=== PATIENT | male | born 1950 | race Caucasian/White ===

== ENCOUNTER → 2016-06-12 | Outpatient (CLI) | payer MEDICARE, OTHER ==
[2016-06-12 14:57] LABS: ABSOLUTE BASOPHILS # (AUTO) 0.1 10^3/uL (0.0-0.2); ABSOLUTE EOSINOPHILS # (AUTO) 0.3 10^3/uL (0.0-0.6); ABSOLUTE LYMPHOCYTES (AUTO) 1.7 10^3/uL (0.5-4.7); ABSOLUTE MONOCYTES (AUTO) 0.4 10^3/uL (0.1-1.4); ABSOLUTE NEUT (AUTO) 3.3 10^3/uL (1.7-8.2); BASOPHILS % (AUTO) 1.2 % (0-2); EOSINOPHILS % (AUTO) 4.6 % (0-6); HEMATOCRIT 37.1 % (37.9-51.0); HEMOGLOBIN 12.9 g/dL (13.5-17.0); HGB HCT DIFFERENCE 1.6; MEAN CORPUSCULAR HEMOGLOBIN 32.3 pg (27.0-33.4); MEAN CORPUSCULAR HGB CONC 34.8 g/dL (32.0-36.0); MEAN CORPUSCULAR VOLUME 93 fl (80-97); MONOCYTES % (AUTO) 7.4 % (3-13); RED CELL DISTRIBUTION WIDTH 12.1 % (11.5-14.0); SEGMENTED NEUTROPHILS % (AUTO) 56.8 % (42-78); WHITE BLOOD COUNT 5.8 10^3/uL (4.0-10.5)
[2016-06-12 14:59] LABS: APPEARANCE,URINE CLEAR; BILIRUBIN,URINE NEGATIVE (NEGATIVE); GLUCOSE, URINE NEGATIVE (NEGATIVE); KETONES,URINE NEGATIVE (NEGATIVE); LEUKOCYTE ESTERASE,URINE NEGATIVE (NEGATIVE); NITRITE,URINE NEGATIVE (NEGATIVE); PROTEIN,URINE NEGATIVE (NEGATIVE); URINE SPECIFIC GRAVITY 1.024
[2016-06-12 16:17] LABS: CARCINOEMBRYONIC ANTIGEN 2.2 ng/mL (<3.0); PROSTATE SPECIFIC ANTIGEN 1.03 ng/mL (<4.00)
--- NOTE | 2016-06-14 12:47 | HISTORY AND PHYSICAL E ---
History and Physical NAME: FELICIANO GRANDE : 1950 AGE: 65Y ADMITTED: 06/12/2016 ROOM: ADDENDUM: The patient was seen in the emergency room regarding GI bleed. The patient did have CT scan showing diverticulosis of the large intestine without perforation or abscess, with bleeding. A 65-year-old with recently diagnosed diverticulitis per the emergency department. I disagree with the diagnosis. I think he had diverticulosis only. Nevertheless, the presented at this time with GI bleed. PAST MEDICAL HISTORY: 1. Class 1 overweight. 2. Meniere's disease, hearing loss. 3. History of traumatic head injury as a child. 4. History of hematuria. 5. Basal cell carcinoma. His urologist is in [place]. MEDICATIONS: 1. Aspirin. 2. Antivert. 3. Valium. 4. Vitamin D. 5. Mucinex. 6. Claritin. 7. Flonase. 8. Marian. The patient stopped his hydrochlorothiazide, Norvasc, Lisinopril. SOCIAL HISTORY: He smoked cigarettes for 10 years, smoked pipe. PHYSICAL EXAMINATION: VITAL SIGNS: Blood pressure is 120/70. A 65-year-old who was seen in the emergency room after a diagnosis of diverticulosis, question diverticulitis. The patient presented at this time regarding colonoscopy. Appendix is not inflamed, no ascites. No evidence of mass, bowel obstruction. The patient presented at this time regarding a colonoscopy, GI bleed. CONCLUSION: Patient for colonoscopy tomorrow. DICTATING PHYSICIAN: RANJIT LUJAN M.D. 1819M 1507 Y#: [id number] ID: [id number] JOB#: [id number] ACCT: [id number] cc:RANJIT LUJAN M.D. >
== END ==
LOC: OD 14:12
PROVIDERS: ATTEND Specialist
DX: R10.9 Unspecified abdominal pain (principal); R97.0 Elevated carcinoembryonic antigen [CEA]; R97.20 Elevated prostate specific antigen [PSA]
CPT/HCPCS: 36415; 81001; 82378; 84153; 85025; 87086

== ENCOUNTER 2016-06-14 10:20 | Day surgery (SDC) | payer MEDICARE, OTHER ==
[~2016-06-14 10:20] MED LIST: EPINEPHRINE INJ 1 MG/10 ML DISP.SYRIN ONE; FLUMAZENIL INJ 0.5 MG/5 ML VIAL IV ONE; GLUCAGON,HUMAN RECOMB 1 MG INJ ONE; GLYCOPYRROLATE INJ 0.4 MG/2 ML VIAL ONE; LIDOCAINE 2% JELLY 30 ML TUBE ONE; MIDAZOLAM 2 MG/2 ML INJ ONE; NALOXONE HCL INJ/PF 0.4 MG/1 ML SDV ONE; ONDANSETRON HCL INJ/PF 4 MG/2 ML SDV ONE; PROMETHAZINE HCL INJ 25 MG/1 ML VIAL ONE
[2016-06-14] MEDS: FENTANYL CITRATE INJ/PF 100 MCG/2 ML AMPUL ONE ×3 (11:06→11:13)
[2016-06-14 12:03] LABS: ABSOLUTE BASOPHILS # (AUTO) 0.1 10^3/uL (0.0-0.2); ABSOLUTE EOSINOPHILS # (AUTO) 0.3 10^3/uL (0.0-0.6); ABSOLUTE LYMPHOCYTES (AUTO) 1.1 10^3/uL (0.5-4.7); ABSOLUTE MONOCYTES (AUTO) 0.4 10^3/uL (0.1-1.4); ABSOLUTE NEUT (AUTO) 3.7 10^3/uL (1.7-8.2); BASOPHILS % (AUTO) 1.3 % (0-2); EOSINOPHILS % (AUTO) 5.1 % (0-6); HEMATOCRIT 34.9 % (37.9-51.0); HGB HCT DIFFERENCE 1.1; LYMPHOCYTES % (AUTO) 19.7 % (13-45); MEAN CORPUSCULAR HGB CONC 34.3 g/dL (32.0-36.0); MEAN CORPUSCULAR VOLUME 93 fl (80-97); MONOCYTES % (AUTO) 7.8 % (3-13); RED BLOOD COUNT 3.74 10^6/uL (4.35-5.55); RED CELL DISTRIBUTION WIDTH 11.9 % (11.5-14.0); SEGMENTED NEUTROPHILS % (AUTO) 66.1 % (42-78); WHITE BLOOD COUNT 5.6 10^3/uL (4.0-10.5)
[2016-06-14 12:34] VITALS: BP 118/68
--- NOTE | 2016-06-14 12:46 | DISCHARGE SUMMARY E ---
Discharge Summary NAME: FELICIANO GRANDE : 1950 AGE: 65Y ADMITTED: 06/14/2016 DISCHARGED: 06/14/2016 PROCEDURE: Colonoscopy to the ascending colon. RECOMMENDATIONS: Recommend followup colonoscopy, complete, in 3-6 months. HOSPITAL COURSE: Patient's colonoscopy was done today un-prepped secondary to recent GI bleed from diverticulosis. Today's colonoscopy showed no further bleeding, large amount of formed stools all around the colon to the ascending. I did not see the cecum or the proximal ascending. HISTORY: Patient is known to me. He has diverticulosis, has recent CT scan showing diverticulosis plus/minus question diverticulitis. Today's un-prepped colon showed no bleeding, no malignancy, benign-looking rectal polyps. DISCHARGE PLAN: Baseline CBC. Full liquid diet today. Soft, low residue until he sees me in the office sometime next week. DICTATING PHYSICIAN: RANJIT LUJAN M.D. 1227M [id number] Y#: [id number] ID: [id number] JOB#: [id number] ACCT: [id number] cc:[facility] RANJIT LUJAN M.D. >
--- NOTE | 2016-06-14 13:40 | OPERATIVE REPORT E ---
Operative Report NAME: FELICIANO GRANDE : 1950 AGE: 65Y DATE OF SURGERY: 06/14/2016 ROOM: PREOPERATIVE DIAGNOSIS: Rectal bleeding. POSTOPERATIVE DIAGNOSIS: External hemorrhoids, mild. Diminutive rectal polyps. Sigmoid descending diverticulosis. Large amount of stool. OPERATION: Colonoscopy to the ascending colon. This was unprepped colonoscopy because of the recent history of bleeding diverticulosis. SURGEON: RANJIT LUJAN M.D. ANESTHESIA: Versed 2, Fentanyl 100. TISSUE REMOVED OR ALTERED: None. PROCEDURE: Stool and external hemorrhoids and diminutive polyps, sigmoid descending colon diverticulosis and formed stool. Transverse colon diverticulosis and formed stool. Ascending colon shows formed stool and diverticulosis. The cecum and the proximal ascending were not visualized. Scope withdrawn from ascending, transverse, descending sigmoid, all the way to the rectum. CONCLUSION: Colonoscopy to the ascending colon. The cecum was not visualized. PLAN: Baseline CBC. Discharge the patient on full liquids today, then soft low residual diet. Consider prepped colonoscopy after 3-6 months. DICTATING PHYSICIAN: RANJIT LUJAN M.D. 1217M 1147 PHY#: [id number] ID: [id number] JOB#: [id number] ACCT: [id number] cc:[facility] RANJIT WILDER M.D. >
== END 2016-06-14 12:30 | disposition home or self-care (01) ==
LOC: END 10:20
PROVIDERS: ATTEND Specialist
PROC: 0DJD8ZZ Inspection of Lower Intestinal Tract, Via Natural or Artificial Opening Endoscopic (ICD-10-PCS; principal; 2016-06-14 11:00)
DX: K64.9 Unspecified hemorrhoids (principal); K57.30 Diverticulosis of large intestine without perforation or abscess without bleeding; K62.5 Hemorrhage of anus and rectum; K64.4 Residual hemorrhoidal skin tags; K62.1 Rectal polyp; I10 Essential (primary) hypertension; F17.210 Nicotine dependence, cigarettes, uncomplicated; Z79.899 Other long term (current) drug therapy
CPT/HCPCS: 45378; 36415; 85025; J2250; J3010; J1610; J2405; J0171; J2310; J2550; J3490